=== PATIENT | female | born 1945 | race Caucasian/White ===

== ENCOUNTER 2023-10-12 16:18 | Emergency (ER) | payer MEDICARE, BC, SELFPAY ==
--- NOTE | ~2023-10-12 | XR_ITS ---
EXAMINATION: XR chest 1V portable DATE: 10/12/2023 19:20 INDICATION: Lightheadedness TECHNIQUE: frontal view of the chest was obtained. COMPARISON: None FINDINGS: The lungs are clear with no focal airspace opacities, pulmonary edema, pleural effusion or pneumothor ax. The cardiomediastinal silhouette is normal. Cardiac pacemaker/AICD seen with one lead tip project ing over the right atrium, and two ventricular leads with lead tips near the apex of the right ventri elizabeth, one presumably disconnected. IMPRESSION: 1. No acute cardiopulmonary disease. Reviewed, dictated and finalized at location A.
[2023-10-12 16:21] VITALS: BP 149/66; PULSE 76; RESP 16; TEMP 36.8; O2SAT 95
--- NOTE | 2023-10-12 19:01 | ECG_ITS ---
Test Date: 2023-10-12 19:10:24 Measurements Intervals [place] Rate: 70 P: 61 SD: 103 QRS: -81 QRSD: 160 T: 81 QT: 424 QTc: 460 Interpretive Statements ATRIAL SENSE- ELECTRONIC VENTRICULAR PACEMAKER BASELINE ARTIFACT- I, II, III, AVR, AVL, AVF, V1-V6 NO FURTHER INTERPRETATION IS POSSIBLE ATYPICAL ECG No previous ECG available for comparison Electronically Signed On 10-12-2023 19:41:26 CDT by Nitin Cuellar D.O.
--- NOTE | 2023-10-12 19:02 | ED.DENTAL ---
HPI - Dental/Oral General Chief complaint: Dental/Oral Stated complaint: NAUSEA/LIGHTHEADED Time Seen by Provider: 10/12/23 18:38 History of Present Illness HPI Narrative: 78-year-old female with reported history of COPD, hypertension, hyperlipidemia, CHF presents to the emergency department for a right-sided dental abscess for 2 days. She is also reporting lightheadedness, nausea and vomiting since yesterday. Patient states she developed the right lower dental abscess 2 days ago and contacted her dentist who prescribed her Augmentin and tramadol. States she took her 1st dose of Augmentin yesterday and another dose in the evening and immediately became nauseous. States she has been unable to keep down food or fluids since. She reports feeling lightheaded which is worse when standing. She denies abdominal pain, chest pain or shortness of breath, lower extremity edema, difficulty swallowing or breathing, fever, diarrhea. States she contacted her dentist advised her to discontinue her Augmentin and go to the ED for further evaluation. Related Data Allergies Allergy/AdvReac Type Severity Reaction Status Date / Time amoxicillin [From Augmentin] AdvReac Nausea Verified 10/12/23 16:25 clavulanic acid AdvReac Nausea Verified 10/12/23 16:25 [From Augmentin] codeine AdvReac Vomiting Verified 10/12/23 16:25 Review of Systems Review of Systems: All systems reviewed & are unremarkable except as noted in HPI and below Exam Narrative: GENERAL: Well-appearing, well-nourished, and in no acute distress. HEAD: Normocephalic, atraumatic. EYES: PERRLA and EOMI. ENT: Nares clear, no rhinorrhea or epistaxis. Mucous membranes Dry. periapical abscess to tooth #27 with fluctuance. No active drainage. Floor mouth is soft without crepitus. No airway compromise. No trismus. Patient tolerating secretions. No submandibular Edema NECK: Supple. CHEST: Clear to auscultation. No respiratory distress. HEART: Regular rate and rhythm. No murmur heard. Normal peripheral pulses. ABDOMEN: Soft, nontender, nondistended, normal active bowel sounds. no rebound, guarding or rigidity. No CVA tenderness. EXTREMITIES: Normal range of motion. No edema. SKIN: Warm, dry, no rash. NEURO: No focal deficits. Alert and oriented x3 Course Vital Signs Vital signs: Vital Signs Temperature 98.2 F 10/12/23 16:21 Pulse Rate 76 10/12/23 16:21 Respiratory Rate 16 10/12/23 16:21 Blood Pressure 149/66 H 10/12/23 16:21 Pulse Oximetry 95 10/12/23 16:21 Oxygen Delivery Room Air 10/12/23 16:21 Temperature 98.2 F 10/12/23 16:21 Pulse Rate 77 10/12/23 21:02 Respiratory Rate 13 10/12/23 21:02 Blood Pressure 129/54 L 10/12/23 21:02 Pulse Oximetry 95 10/12/23 21:02 Oxygen Delivery Room Air 10/12/23 16:21 Procedures Abscess I/D oral: Date of Incision: 10/12/23 Time of Incision: 19:05 Side (if applicable): right Technique: other (incised with 20 gauge needle) Amount of fluid expressed (mL): 1 Irrigation: No Packing used?: none I&D Results: Pus and Blood MDM - Dental/Oral MDM Narrative Medical decision making narrative: 78-year-old female presents to emergency department for a right dental abscess for 2 days, lightheadedness and N/V since starting her Augmentin that was prescribed by her dentist. Triage vitals are stable. Exam is significant for the above. Periapical abscess drained with a 20 gauge needle, purulence drained. no immediate complications. She has no airway compromise, no trismus. she is tolerating her secretions. Floor mouth is soft without crepitus. No submandibular swelling. Will obtain lab work, EKG, chest x-ray, orthostatic vitals signs for lightheadedness. EKG shows electronic ventricular pacemaker with a rate of 70 ppm, no ischemic changes. Troponin within normal limits. CBC is without leukocytosis or anemia. Chemistries are unremarkable.
[2023-10-12 19:20] LABS: Basophils Absolute Auto 0.1 K/mm3 (0.0-0.1); Basophils Percent Auto 0.6 % (0.2-1.2); Eosinophils Absolute Auto 0.1 K/mm3 (0-0.3); Eosinophils Percent Auto 0.7 % (0-4.4); Hematocrit 37.8 % (37.0-47.0); Hemoglobin 12.3 g/dL (12.0-15.0); Immature Granulocyte Absolute 0.02 K/mm3 (0.00-0.031); Immature Granulocyte Percent A 0.2 % (0-0.5); Lymphocytes Absolute Auto 0.72 K/mm3 (0.9-3.2); Lymphocytes Percent Auto 7.4 % (18.3-44.2); Mean Corpuscular HGB Conc 32.5 g/dl (32-36); Mean Corpuscular Hemoglobin 31.5 pg (26-34); Mean Corpuscular Volume 96.9 fl (80-100); Mean Platelet Volume 10.2 fl (7.4-10.4); Monocytes Absolute Auto 0.8 K/mm3 (0.1-0.6); Neutrophils Percent Auto 83.1 % (45.5-73.1); Platelet Count Result 236 k/mm3 (150-375); Red Cell Distribution Width 12.5 % (11.5-14.5); White Blood Count 9.7 K/mm3 (4.5-10.0)
[2023-10-12] MEDS: SODIUM CHLORIDE 0.9% IV 1,000 ML 999 ML IV CONT (19:26)
[2023-10-12] MEDS: ONDANSETRON INJ 4 MG/2 ML VIAL IV PUSH ×2 (19:27→21:15)
[2023-10-12 19:28] LABS: Prothrombin Time 13.8 Seconds (11.1-14.7)
[2023-10-12 19:29] VITALS: BP 138/63; PULSE 63; RESP 15; O2SAT 95
[2023-10-12 19:29] LABS: Partial Thromboplastin Time 28.9 Seconds (22.3-36.8)
--- NOTE | 2023-10-12 19:29 | PC.NURSE ---
Assumed care of pt from JAXON Campos. IV initiated, medications administered. pt resting w call light within reach.
[2023-10-12 19:32] LABS: Magnesium 1.9 mg/dL (1.6-2.3)
[2023-10-12 19:33] LABS: Lactic Acid Reflex 0.8 mmol/L (0.7-2.0)
[2023-10-12 19:35] LABS: Alanine Aminotransferase 28 U/L (6-35); Albumin Level 4.2 g/dL (3.5-5.1); Alkaline Phosphatase 117 U/L (38-126); Anion Gap 8 mmol/L (4-12); Aspartate Amino Transferase 27 U/L (14-36); Bilirubin,Total 0.9 mg/dL (0.2-1.3); Blood Urea Nitrogen 19 mg/dL (7-17); Calcium 9.5 mg/dL (8.4-10.2); Carbon Dioxide 29 mmol/L (22-30); Chloride 99 mmol/L (98-107); Estimated CRCL calculation 40 ml/min; Estimated Glomerular Filt Rate 60; Glucose 89 mg/dL (65-110); Sodium 136 mmol/L (137-145)
[2023-10-12 19:45] LABS: NT Pro B Type Natriuretic Pept 2240 pg/mL (19.9-100); Troponin I 0.013 ng/mL (0.000-0.034)
[2023-10-12 20:37] LABS: Appearance Urine Clear (Clear); Bacteria Urine None Seen /hpf; Bilirubin Urine Negative (Negative); Blood Urine Negative (Negative); Color Urine Yellow (Yellow); Glucose Urine UA Negative (Negative); Ketones Urine Trace mg/dL (Negative); Leukocyte Esterase Ur Trace LEU/UL (Negative); Nitrate Urine Negative (Negative); Non Pathogenic Casts 0-2; Protein Urine Negative (Negative); RBC Urine 0-2 /hpf (0-2); Specific Grav Ur 1.012 (1.001-1.035); Squamous Epithelial Cell Urine None Seen /hpf (Few); Urobilinogen Urine 0.2 mg/dL (<2.0); WBC Urine 0-5 /hpf (0-3)
[2023-10-12 20:44] LABS: Add Urine Microscopic? YES
[2023-10-12 21:02] VITALS: BP 129/54; PULSE 77; RESP 13; O2SAT 95
--- NOTE | 2023-10-12 21:24 | PC.NURSE ---
Pt provided crackers and water for PO challenge.
[2023-10-12 22:09] VITALS: BP 140/71; PULSE 79; RESP 17; O2SAT 95
== END 2023-10-12 22:12 | disposition home or self-care (01) ==
PROVIDERS: Emergency Provider Physician Assistant; PCP Internal Medicine
DX: R11.2 Nausea with vomiting, unspecified (principal); K04.7 Periapical abscess without sinus; J44.9 Chronic obstructive pulmonary disease, unspecified; I11.0 Hypertensive heart disease with heart failure; I50.9 Heart failure, unspecified; E78.5 Hyperlipidemia, unspecified
CPT/HCPCS: 36415; 41800; 71045; 80053; 81001; 83605; 83735; 83880; 84484; 85025; 85610; 85730; 93005; 96361; 96374; 96376; 99284; J2405; J7030

== ENCOUNTER 2023-10-14 12:55 | Inpatient (IN) | payer MEDICARE, BC, SELFPAY ==
[2023-10-14] VITALS (24 sets, daily range): BP systolic 100–150; BP diastolic 49–85; PULSE 60–97; RESP 13–23; TEMP 36.5–37.2; O2SAT 70–100; BMI 29.0
--- NOTE | ~2023-10-14 | CT_ITS ---
EXAMINATION: CTA chest PE protocol DATE: 10/14/2023 15:52 INDICATION: Hypoxia TECHNIQUE: Computed tomography (CT) pulmonary angiogram of the chest was performed with 100 mL Omnipa que-350 intravenous contrast. Additional 3D reconstructions utilizing coronal maximum intensity proje ction (MIP) were performed. Automated exposure control and iterative reconstruction technique were em ployed. The dose-length product was 210.77 mGy-cm. COMPARISON: None FINDINGS: No pulmonary embolism. Small region of lingular atelectasis along the inferior left major fissure. Mi ld emphysema. Small cluster of <4 mm pulmonary nodules in the posterolateral right upper lobe which a re likely infectious/inflammatory in etiology. Calcified nodule left lower lobe along with calcified left hilar and mediastinal lymph nodes consistent with old granulomatous disease. Remainder of the hayder ngs are clear. No pulmonary edema or pleural effusion. Heart size is normal. 3-lead cardiac pacemaker /defibrillator with one lead tip at the right atrial appendage, one near the apex of the right ventri elizabeth and one along the and inferolateral wall of the left ventricle having traversed the coronary sinu s. Minimal pericardial effusion. Thoracic aorta is normal in caliber with no dissection. No pathologi monique enlarged thoracic lymphadenopathy. Small sliding-type hiatal hernia. 1.4 cm cyst at the upper p ole of the right kidney. Moderate thoracic spondylosis with mild anterior wedging of a couple mid tho racic vertebral bodies. IMPRESSION: 1. No pulmonary embolism. 2. Mild emphysema with small cluster of <4 mm nodules in the right upper lobe likely infectious/infla mmatory in etiology. 3. Small sliding-type hiatal hernia. Reviewed, dictated and finalized at location A. IMPRESSION: 1. No pulmonary embolism. 2. Mild emphysema with small cluster of <4 mm nodules in the right upper lobe l ikely infectious/inflammatory in etiology. 3. Small sliding-type hiatal hernia.
--- NOTE | ~2023-10-14 | XR_ITS ---
EXAMINATION: XR chest 1V portable DATE: 10/14/2023 14:14 INDICATION: Hypoxia. Chronic obstructive pulmonary disease. TECHNIQUE: A single frontal view of the chest was obtained. COMPARISON: Chest single view 10/12/2023 FINDINGS: There is no pneumonia, pleural effusion, or pneumothorax. The heart size is normal. There i s a left chest pacer with lead in right atrium and 2 leads overlying right ventricle. IMPRESSION: 1. No acute cardiopulmonary disease. Reviewed, dictated and finalized at location A.
--- NOTE | 2023-10-14 13:08 | ECG_ITS ---
Test Date: 2023-10-14 13:08:59 Measurements Intervals [place] Rate: 70 P: 83 [place]: 102 QRS: -82 QRSD: 161 T: 77 QT: 448 QTc: 484 Interpretive Statements ELECTRONIC VENTRICULAR PACEMAKER WITH ATRIAL SENSING ABNORMAL RHYTHM ECG Compared to ECG 10/12/2023 19:10:24 No significant changes Electronically Signed On 10-16-2023 10:42:08 CDT by Shahzad Ignacio M.D.
--- NOTE | 2023-10-14 13:13 | PC.NURSE ---
Patient O2 was 76% on room air. placed on non rebreather and oxygen came up to 100%. patient taken off the mask and placed on 2L NC.
[2023-10-14] MEDS: SODIUM CHLORIDE 0.9% IV 1,000 ML 999 ML IV CONT (13:31)
[2023-10-14] MEDS: dexAMETHasone SOD PHOS INJ 10 MG/ML 1 ML VIAL IV PUSH ×2 (13:31→18:50)
[2023-10-14 13:32] LABS: Basophils Absolute Auto 0.1 K/mm3 (0.0-0.1); Basophils Percent Auto 1.3 % (0.2-1.2); Eosinophils Absolute Auto 0.1 K/mm3 (0-0.3); Eosinophils Percent Auto 1.8 % (0-4.4); Hematocrit 36.3 % (37.0-47.0); Hemoglobin 11.6 g/dL (12.0-15.0); Immature Granulocyte Absolute 0.02 K/mm3 (0.00-0.031); Immature Granulocyte Percent A 0.3 % (0-0.5); Lymphocytes Absolute Auto 0.61 K/mm3 (0.9-3.2); Lymphocytes Percent Auto 9.8 % (18.3-44.2); Mean Corpuscular Hemoglobin 32.1 pg (26-34); Mean Corpuscular Volume 100.6 fl (80-100); Mean Platelet Volume 10.4 fl (7.4-10.4); Monocytes Absolute Auto 0.6 K/mm3 (0.1-0.6); Monocytes Percent Auto 10.3 % (2.6-8.5); Neutrophils Absolute Auto 4.8 K/mm3 (1.3-6.7); Neutrophils Percent Auto 76.5 % (45.5-73.1); Platelet Count Result 230 k/mm3 (150-375); Red Blood Count 3.61 M/mm3 (4.2-5.4); Red Cell Distribution Width 12.9 % (11.5-14.5); White Blood Count 6.2 K/mm3 (4.5-10.0)
[2023-10-14] MEDS: IPRATROPIUM 0.5 MG/ALBUTEROL SULFATE 2.5 MG AMPUL.NEB 3 ML 12 ML INHALATION (13:36)
[2023-10-14 13:42] LABS: Alanine Aminotransferase 26 U/L (6-35); Albumin Level 3.6 g/dL (3.5-5.1); Alkaline Phosphatase 102 U/L (38-126); Anion Gap 7 mmol/L (4-12); Aspartate Amino Transferase 28 U/L (14-36); Bilirubin,Total 0.4 mg/dL (0.2-1.3); Blood Urea Nitrogen 18 mg/dL (7-17); Carbon Dioxide 29 mmol/L (22-30); Chloride 104 mmol/L (98-107); Estimated CRCL calculation 33 ml/min; Estimated Glomerular Filt Rate 48; Glucose 94 mg/dL (65-110); Lipase 61 U/L (23-300); Magnesium 1.9 mg/dL (1.6-2.3); Potassium 3.8 mmol/L (3.4-5.0); Sodium 140 mmol/L (137-145)
[2023-10-14 13:43] LABS: Lactic Acid Reflex 0.8 mmol/L (0.7-2.0)
[2023-10-14 14:02] LABS: NT Pro B Type Natriuretic Pept 3400 pg/mL (19.9-100); Troponin I 0.152 ng/mL (0.000-0.034)
[2023-10-14 14:08] LABS: Influenza A QL RT-PCR Negative (Negative); Influenza B QL RT-PCR Negative (Negative); RSV RNA, RT-PCR Negative (Negative); SARS-CoV-2 RNA PCR Negative (Negative)
[2023-10-14] MEDS: ACETAMINOPHEN 500 MG TABLET 1000 MG PO (14:15)
--- NOTE | 2023-10-14 15:17 | ED.GENADULT ---
HPI - General Adult General Chief complaint: Nausea/Vomiting/Diarrhea Stated complaint: nauseated Time Seen by Provider: 10/14/23 13:07 History of Present Illness HPI narrative: This is an 78-year-old female presenting ED with a chief complaint of nausea vomiting. Patient was seen here several days ago for a dental abscess. It was drained and she was started on Augmentin. She developed nausea and vomiting that she is associated with the Augmentin. That was DC'ed did and she was put on clindamycin however she has continued to have GI symptoms. The patient says she feels short of breath but says is her baseline. She denies fevers chills productive cough chest pain abdominal pain or lower extremity edema. Patient has history of CHF COPD. While the patient came for nausea and vomiting in triage she was found severely hypoxic requiring supplemental oxygen. She does not wear oxygen home. Related Data Allergies Allergy/AdvReac Type Severity Reaction Status Date / Time amoxicillin [From Augmentin] AdvReac Nausea Verified 10/14/23 13:23 clavulanic acid AdvReac Nausea Verified 10/14/23 13:23 [From Augmentin] codeine AdvReac Vomiting Verified 10/14/23 13:23 Exam Narrative: APPEARANCE: No apparent distress. Head: atraumatic. EYES: EOMI, NOSE: Atraumatic NECK: Trachea midline RESPIRATORY: Hypoxic on room air, decreased lung sounds in all haro, scattered expiratory wheezing CARDIOVASCULAR: RRR, no peripheral edema, point of care cardiac thoracic echo revealed a flat IVC ABDOMINAL: Non-distended MUSCULOSKELETAl: No obvious deformities NEURO: Alert. Moving 4/4 extremities SKIN:: Warm, dry. Normal color PSYCHIATRIC: Normal affect Course Vital Signs Vital signs: Vital Signs Temperature 97.7 F 10/14/23 13:01 Pulse Rate 97 10/14/23 13:01 Respiratory Rate 18 10/14/23 13:01 Blood Pressure 145/60 H 10/14/23 13:01 Pulse Oximetry 80 L 10/14/23 13:01 Temperature 97.7 F 10/14/23 13:01 Pulse Rate 75 10/14/23 14:01 Respiratory Rate 19 10/14/23 14:01 Blood Pressure 136/66 10/14/23 14:00 Pulse Oximetry 92 10/14/23 14:01 Medical Decision Making [facility] Narrative Medical decision making narrative: -Course: 78-year-old female coming to the ED with a chief complaint of nausea vomiting for several days. However in triage patient was found to be severely hypoxic and in respiratory distress. Patient was placed on supplemental oxygen. Point of care cardiothoracic echo showed a flat IVC which suggests her dyspnea is not related to her CHF. Given breathing treatments and steroids for COPD. Hypoxic did not improve after breathing treatments. Chest xray clear. CT PE ordered to evaluate for other causes which showed no evidence of pulmonary embolism but did show some small/possibly infectious nodules. Patient will be started on ceftriaxone and azithromycin to cover pneumonia. Patient be admitted the hospital for further management -DDX includes but is not limited to: Pneumonia, COPD, CHF, ACS, viral syndrome, PE -Co-morbidities complicating care: CHF, COPD -Independent interpretation of studies: White count 6.2, Lactic acid 0.8. Creatinine 1.1 which is a 0.2 increased from 2 days ago. Troponin elevated at 0.152. BNP 3400. Point of care cardiac thoracic echo showed a flat IVC. No other signs of fluid overload to the indicate respiratory distress due to CHF. Viral swabs negative. X-ray clear. Independent EKG interpretation: Rhythm Paced, Rate [70], [place] -[normal], CT -[normal], QRS [wide], QTC [normal], T waves -[negative for concerning inversions], ST Segments - [Negative for concerning elevations] Final interpretations: Paced rhythm -Discussion of Management/Consultants: Jenn -Interventions: Tylenol, 1 L normal saline, 10 mg dexamethasone, 1 hour breathing treatment, ceftriaxone azithromycin -Shared decision making / Disposition:admitted. Vital Signs Vital Signs: Vital Signs Temperat
--- NOTE | 2023-10-14 15:29 | PC.NURSE ---
patient states improvement in pain.
--- NOTE | 2023-10-14 17:14 | PC.NURSE ---
food tray ordered for patient.
[2023-10-14 17:17] LABS: Troponin I 0.129 ng/mL (0.000-0.034)
[2023-10-14] MEDS: AZITHROMYCIN 500 MG/NS 250 ML 500 MG/250 ML BAG 250 MG IVPB (17:18)
--- NOTE | 2023-10-14 17:30 | PM.IMHP ---
H&P: HPI History of Present Illness Date/Time: 10/14/23 17:30 Chief Complaint: Nausea and shortness of breath. Narrative: This is a pleasant 78-year-old female with chronic obstructive pulmonary disease, congestive heart failure, hypothyroidism, and hyperlipidemia who presented to the emergency department for evaluation of nausea and shortness of breath. The patient provides the following history. She was prescribed Augmentin by her dentist on 10/11/2023 due to an abscessed tooth. She was seen in the ED the following day for GI symptoms which she attributed to the Augmentin and had an I&D of tooth number 27. She was given a prescription for clindamycin which she has at to have filled. She continues to have nausea and she also reports increasing cough and shortness of breath from baseline. The cough sounds wet but she has not been able to get anything up. She has been using her nebulizer and albuterol inhaler with lesser and lesser benefit. She denies fever, chills, sweats, chest pain, pleuritic pain, palpitations, orthopnea, paroxysmal nocturnal dyspnea, lower extremity edema, calf pain, nausea, vomiting, and diarrhea. No sick contacts. In the ED: She was hypoxic in triage with an SpO2 as low as 70%. She has been afebrile and blood pressures are stable. Labs are significant for a WBC count of 6.2, hemoglobin 11.6, BUN 18, creatinine 1.10, proBNP 3400, troponin 0.152. She tested negative for influenza, RSV, and COVID. Chest x-ray showed no acute cardiopulmonary disease. Chest CTA was negative for pulmonary embolism. She received continuous DuoNeb and dexamethasone 10 mg IV with some improvement and is being admitted in this setting for further treatment of COPD and evaluation of elevated troponins. Review of Systems Review of Systems: 12 systems were reviewed and are negative except for as per HPI. [facility] Past Medical History Medical History Cardiomyopathy with implantable cardioverter-defibrillator Chronic obstructive pulmonary disease Congestive heart failure Hyperlipidemia Hypothyroidism Surgical History Surgical History History of cardiac defibrillator placement Social History Social History Social History: Surrogate medical decision maker: Shahzad Geiger, spouse. Code status: Full code. Alcohol intake: never Substance use: never Do You Feel Safe in your Home?: Yes Lack of Transportation: No Lack of Food: Never True Current Housing: I Have Housing Concerned About Future Housing: No Difficulty Paying Gas/Electric Bills: No Difficulty Paying for Meds: No Currently Unemployed: No Education: Decline to Answer Difficulty w/ Childcare or Family Care: No Spiritual care concerns: No Meds Home Medications and Allergies Home Medications Medication Instructions Recorded Confirmed Type clindamycin HCl 300 mg capsule 300 mg PO Q6H 7 days #28 caps 10/12/23 10/14/23 Rx albuterol sulfate 90 mcg/actuation 90 mcg inhalation QID 10/14/23 10/14/23 History aerosol inhaler atorvastatin 40 mg tablet 40 mg PO DAILY 10/14/23 10/14/23 History bisoprolol fumarate 10 mg tablet 10 mg PO DAILY 10/14/23 10/14/23 History budesonide-formoterol HFA 160 2 puff inhalation BID 10/14/23 10/14/23 History mcg-4.5 mcg/actuation aerosol inhaler (Breyna) esomeprazole magnesium 40 mg 40 mg PO DAILY 10/14/23 10/14/23 History capsule,delayed release fluticasone 100 mcg-salmeterol 50 1 inh inhalation BID 10/14/23 10/14/23 History mcg/dose blistr powdr for inhalation (Wixela Inhub) levothyroxine 112 mcg tablet 1 mcg PO DAILY 10/14/23 10/14/23 History ondansetron 4 mg disintegrating 4 mg PO Q8H 10/14/23 10/14/23 History tablet sacubitril 49 mg-valsartan 51 mg 49 - 51 tablet PO BID 10/14/23 10/14/23 History tablet (Entresto) spironol
[2023-10-14] MEDS: SODIUM CHLORIDE 0.9% IV 1,000 ML 80 ML IV CONT (18:50)
--- NOTE | 2023-10-14 20:11 | ADMGEN ---
This patient, Delmis Geiger, was admitted to IMU Room 232-01. Patient/family oriented to hospital policies and general routines including ID bracelet, bed and alarms, visiting hours, pain management, procedures, bathroom and other care routines, personal items, smoking policy, room service/diet, and visiting hours. Information on how to activate the Rapid Response Team has been discussed. Patient/Family are encouraged to report perceived risks to care and to ask questions if they do not understand what they are told or what they should do.
[2023-10-14] MEDS: IPRATROPIUM 0.5 MG/ALBUTEROL SULFATE 2.5 MG AMPUL.NEB 3 ML INHALATION (20:32)
[2023-10-15] VITALS (25 sets, daily range): BP systolic 131–155; BP diastolic 54–73; PULSE 60–80; RESP 16–20; TEMP 36.4–36.9; O2SAT 89–100
--- NOTE | 2023-10-15 | ECHO_ITS ---
Patient Info Name: Delmis Geiger Age: 78 years : 1945 Gender: Female Ht: 62 in Wt: 150 lbs BSA: 1.74 m2 HR: 64 bpm BP: 155 / 54 mmHg Heart Rhythm: Paced Technical Quality: Good Exam Date: 10/15/2023 9:05 AM Exam Location: Echo Lab Patient Status: Inpatient Admit Date: 10/14/2023 Staff Ordering Physician: Vannesa Alcala PA-C Motorcycle Fabricator: Nic James RDCS Attending Provider: Minna Rojas APRN Referring Physician: Fredrick GARVIN; Exam Type: CA echo doppler color flow Study Info Indications - ELEVATED TROPONIN, CHF, CM Complete two-dimensional, color flow and Doppler transthoracic echocardiogram is performed. Summary 1. Left ventricular chamber dimension is normal. 2. Left ventricular systolic function is mildly reduced, estimated at 45-50%. 3. The left ventricular diastolic function is grade I diastolic dysfunction. 4. Right ventricular systolic function is normal. 5. Left atrial chamber dimension is mildly enlarged. 6. There is mild mitral valve regurgitation. Left Ventricle Left ventricular chamber dimension is normal. Left ventricular systolic function is mildly reduced, estimated at 45-50%. There is no increased left ventricular wall thickness. Left ventricular septal wall motion is abnormal with septal motion related to pacing. The left ventricular diastolic function is grade I diastolic dysfunction. Right Ventricle Linear artifact in right ventricle suggestive of catheter(s), pacemaker lead(s), or ICD lead(s). Right ventricular chamber dimension is normal. Right ventricular systolic function is normal. Left Atria Left atrial chamber dimension is mildly enlarged. Right Atria Linear artifact in the right atrium suggestive of catheter(s), pacemaker lead(s), or ICD lead(s). Right atrial chamber dimension is normal. Atrial Septum Intact interatrial septum visualized by color flow imaging. Aortic Valve The aortic valve is trileaflet. There is no aortic valve stenosis. There is no aortic valve regurgitation. There is mild aortic valve calcification. Pulmonic Valve The pulmonic valve is not well visualized. Mitral Valve There is mild mitral valve regurgitation. Tricuspid Valve There is trace tricuspid valve regurgitation. Pericardium/Pleural There is no pericardial effusion. Inferior Vena Cava Normal inferior vena cava with >50% collapse upon inspiration consistent with normal right atrial pressure, 3 mmHg. Aorta The aortic root size at the sinus of Valsalva is normal. Left Ventricular Outflow Tract Name Value Normal LVOT 2D LVOT Diameter 1.9 cm LVOT Doppler LVOT Peak Gradient 4 mmHg LVOT Mean Gradient 3 mmHg LVOT VTI 28 cm LVOT VTI/AV VTI Ratio 0.6 LVOT Stroke Volume 80 ml LVOT CO 5.9 l/min LVOT CI 3.4 l/min/m2 Pulmonic Valve Name Value Normal
[2023-10-15 00:15] LABS: Add Urine Microscopic? YES; Appearance Urine Clear (Clear); Bacteria Urine None Seen /hpf; Bilirubin Urine Negative (Negative); Blood Urine Negative (Negative); Color Urine Yellow (Yellow); Glucose Urine UA Trace mg/dL (Negative); Ketones Urine Trace mg/dL (Negative); Leukocyte Esterase Ur Negative LEU/UL (Negative); Nitrate Urine Negative (Negative); Non Pathogenic Casts 0-2; Protein Urine 1+ mg/dL (Negative); RBC Urine 0-2 /hpf (0-2); Specific Grav Ur > 1.045 (1.001-1.035); Squamous Epithelial Cell Urine None Seen /hpf (Few); WBC Urine 0-5 /hpf (0-3)
[2023-10-15] MEDS: IPRATROPIUM 0.5 MG/ALBUTEROL SULFATE 2.5 MG AMPUL.NEB 3 ML INHALATION ×4 (02:40→21:20)
[2023-10-15 04:56] LABS: Basophils Percent Auto 0.4 % (0.2-1.2); Hematocrit 33.1 % (37.0-47.0); Hemoglobin 10.6 g/dL (12.0-15.0); Immature Granulocyte Absolute 0.02 K/mm3 (0.00-0.031); Immature Granulocyte Percent A 0.4 % (0-0.5); Lymphocytes Absolute Auto 0.34 K/mm3 (0.9-3.2); Lymphocytes Percent Auto 6.7 % (18.3-44.2); Mean Corpuscular Hemoglobin 31.8 pg (26-34); Mean Corpuscular Volume 99.4 fl (80-100); Mean Platelet Volume 10.4 fl (7.4-10.4); Monocytes Absolute Auto 0.3 K/mm3 (0.1-0.6); Monocytes Percent Auto 5.7 % (2.6-8.5); Neutrophils Absolute Auto 4.4 K/mm3 (1.3-6.7); Neutrophils Percent Auto 86.8 % (45.5-73.1); Platelet Count Result 227 k/mm3 (150-375); Red Blood Count 3.33 M/mm3 (4.2-5.4); Red Cell Distribution Width 12.7 % (11.5-14.5); White Blood Count 5.1 K/mm3 (4.5-10.0)
[2023-10-15 05:08] LABS: Anion Gap 7 mmol/L (4-12); Blood Urea Nitrogen 16 mg/dL (7-17); Calcium 8.6 mg/dL (8.4-10.2); Carbon Dioxide 28 mmol/L (22-30); Chloride 105 mmol/L (98-107); Estimated CRCL calculation 38 ml/min; Estimated Glomerular Filt Rate 53; Glucose 122 mg/dL (65-110); Potassium 4.3 mmol/L (3.4-5.0); Sodium 140 mmol/L (137-145)
[2023-10-15] MEDS: LEVOTHYROXINE SODIUM 112 MCG TABLET PO (07:36)
[2023-10-15] MEDS: PANTOPRAZOLE 40 MG TABLET PO (08:39)
[2023-10-15] MEDS: ATORVASTATIN 40 MG TABLET PO (08:39)
[2023-10-15] MEDS: predniSONE 20 MG TABLET 40 MG PO (08:39)
[2023-10-15] MEDS: bisoproloL fumarate 5 MG TABLET 10 MG PO (08:39)
[2023-10-15] MEDS: SACUBITRIL/VALSARTAN 49-51 MG TABLET PO (08:40)
--- NOTE | 2023-10-15 10:43 | PM.CNCAR ---
Assessment and Plan Assessment and plan (1) Acute exacerbation of chronic obstructive pulmonary disease: Code(s): J44.1 - Chronic obstructive pulmonary disease with (acute) exacerbation Status: Acute Assessment and Plan: Management as per primary team. (2) Acute respiratory failure with hypoxia: Code(s): J96.01 - Acute respiratory failure with hypoxia Status: Acute Assessment and Plan: Due to COPD exacerbation and possible pneumonia. Management as per primary team. (3) Elevated troponin: Code(s): R79.89 - Other specified abnormal findings of blood chemistry Status: Acute Assessment and Plan: Mildly elevated but flat. Likely demand ischemia in the setting of hypoxic respiratory failure. Not an acute coronary syndrome. Echocardiogram already ordered and pending. (4) Chronic heart failure with mildly reduced ejection fraction (HFmrEF, 41-49%): Code(s): I50.22 - Chronic systolic (congestive) heart failure Status: Acute Assessment and Plan: Euvolemic. Continue home Bisoprolol 10mg once daily, Entresto 49/51mg BID, Spironolactone 25mg once daily. On PRN Lasix at home. Outpatient follow up with her primary pigment and lacquer mixer at [facility]. (5) Cardiac resynchronization therapy defibrillator (CRUSHING MACHINE OPERATOR-D) in place: Code(s): Z95.810 - Presence of automatic (implantable) cardiac defibrillator Status: Acute Assessment and Plan: Outpatient follow up with her Electrophysiology team. (6) Hypertension: Code(s): I10 - Essential (primary) hypertension Status: Acute Assessment and Plan: Stable. Continue Bisoprolol, Entresto, Spironolactone. (7) Hyperlipidemia: Code(s): E78.5 - Hyperlipidemia, unspecified Status: Acute Assessment and Plan: Continue Atorvastatin. (8) Coronary artery disease: Code(s): I25.10 - Atherosclerotic heart disease of [place] coronary artery without angina pectoris Status: Acute Assessment and Plan: Will resume her home ASA 81mg once daily. Continue Atorvastatin. Plan Patient to follow up with her primary cardiology teams after hospital discharge. Recommendations and plan discussed with Hospitalist. History of Present Illness History of Present Illness Consult date/time: 10/15/23 10:43 Requesting physician: Vannesa Alcala PA-C Consult reason: Other (Elevated troponin) Reason For Visit: hypoxic resp failure Narrative: We are consulted for elevated troponin. This is an 78 year old female with COPD, chronic heart failure with mildly reduced LVEF s/p CRUSHING MACHINE OPERATOR-D / nonischemic cardiomyopathy, hypertension, hypothyroidism, hyperlipidemia who presented with shortness of breath and nausea. Recently treated for a tooth abscess. In the ED, she was noted to be hypoxic in with oxygen saturations as low as 70%. Admitted for a COPD exacerbation. Troponins are 0.152, 0.129. NT pro BNP of 3400. Chest CTA negative for PE. Shows mild emphysema with small cluster of <4mm nodules in the right upper lobe likely infectious/inflammatory in etiology and a small sliding type hiatal hernia. EKG with ventricular paced rhythm. We do not have any of her prior cardiac records on our [facility] system. Review of her chart in our [facility] system shows: Transthoracic echocardiogram November 2022 with LVEF 41%, grade II diastolic dysfunction, trace-mild TR/ND, trace MR. She follows with [facility]. Initially diagnosed with CHF in 2019. Has single vessel coronary artery disease Review of Systems Review of Systems: All systems reviewed & are unremarkable except as noted in HPI and below (HPI) [facility] Past Medical History Medical History (Updated 10/15/23 @ 10:58 by Leandro Fall MD) Chronic obstructive pulmonary disease Hyperlipidemia Hypothyroidism Surgical History Surgical History History of cardiac defibrillator placement
[2023-10-15 11:01] LABS: Thyroid Stimulating Hormone 0.853 uIU/mL (0.465-4.680)
[2023-10-15 11:07] LABS: Troponin I 0.045 ng/mL (0.000-0.034)
--- NOTE | 2023-10-15 13:54 | P.PNIM_ITS ---
Progress Note: A&P Assessment and Plan (1) Acute respiratory failure with hypoxia: Code(s): J96.01 - Acute respiratory failure with hypoxia Status: Acute (2) Acute exacerbation of chronic obstructive pulmonary disease: Code(s): J44.1 - Chronic obstructive pulmonary disease with (acute) exacerbation Status: Acute (3) Elevated troponin: Code(s): R79.89 - Other specified abnormal findings of blood chemistry Status: Acute (4) Dental abscess: Code(s): K04.7 - Periapical abscess without sinus Status: Acute (5) Congestive heart failure: Code(s): I50.9 - Heart failure, unspecified Status: Deleted (6) Cardiomyopathy with implantable cardioverter-defibrillator: Code(s): I42.9 - Cardiomyopathy, unspecified; Z95.810 - Presence of automatic (implantable) cardiac defibrillator Status: Deleted (7) Hypothyroidism: Code(s): E03.9 - Hypothyroidism, unspecified Status: Acute (8) Hyperlipidemia: Code(s): E78.5 - Hyperlipidemia, unspecified Status: Acute Plan Acute respiratory failure with hypoxia * SpO2 70% POA * Continues home supplemental oxygen and 2 L continue to wean as tolerated * CTA negative for PE/Mild emphysema with small cluster of <4 mm nodules in the right upper lobe likely infectious/inflammatory in etiology. * Secondary to pneumonia? and COPD exacerbation * 6 minute walk study prior to discharge Pneumonia? * Bronchodilators. * Chest x-ray: Mild emphysema with small cluster of <4 mm nodules in the right upper lobe likely infectious/inflammatory in etiology. * incentive spirometry while awake. * sputum culture ordered * influenza/COVID/RSV negative * respiratory panel pending * Azithromycin/Rocephin * supplemental oxygen therapy to maintain oxygen 92% * guaifenesin COPD * Bronchodilators. * Chest x-ray * incentive spirometry while awake. * steroids initiated * Azithromycin/Rocephin * supplemental oxygen therapy to maintain oxygen 92% * Will likely need 6 minute walk study prior to discharge Elevated troponins/HX CHF * Ischemic demand secondary to COPD exacerbation * Peaked at 0.152 with downtrend * Follow-up echocardiogram with improvement EF up to 45-50% * EKG Paced * Cardiology signed off on ACS * Resumed Entresto Code status: Full code per patient DVT prophylaxis: Lovenox Stress ulcer prophylaxis: Protonix 40 daily PT/OT Notes: PT/OT pending Disposition: Patient continues admission for acute respiratory failure with hypoxia secondary to COPD exacerbation and pneumonia will continue with current treatment and wean oxygen as tolerated will likely need 6 minute walk study prior to discharge. PT OT ordered for evaluation however please do will likely be to discharge home may need home health. Time Spent With Patient Time with patient: 15 - 25 minutes Subjective Date/time seen: 10/15/23 13:54 Interval history: Admission: Medical Chart This is a pleasant 78-year-old female with chronic obstructive pulmonary disease, congestive heart failure, hypothyroidism, and hyperlipidemia who presented to the emergency department for evaluation of nausea and shortness of breath. The patient provides the following history. She was prescribed Augmentin by her dentist on 10/11/2023 due to an abscessed tooth. She was seen in the ED the following day for GI symptoms which she attributed to the Augmentin and had an I&D of tooth number 27. She was given a prescription for clindamyc
--- NOTE | 2023-10-15 13:54 | PM.IMPN ---
Progress Note: A&P Assessment and Plan (1) Acute respiratory failure with hypoxia: Code(s): J96.01 - Acute respiratory failure with hypoxia Status: Acute (2) Acute exacerbation of chronic obstructive pulmonary disease: Code(s): J44.1 - Chronic obstructive pulmonary disease with (acute) exacerbation Status: Acute (3) Elevated troponin: Code(s): R79.89 - Other specified abnormal findings of blood chemistry Status: Acute (4) Dental abscess: Code(s): K04.7 - Periapical abscess without sinus Status: Acute (5) Congestive heart failure: Code(s): I50.9 - Heart failure, unspecified Status: Deleted (6) Cardiomyopathy with implantable cardioverter-defibrillator: Code(s): I42.9 - Cardiomyopathy, unspecified; Z95.810 - Presence of automatic (implantable) cardiac defibrillator Status: Deleted (7) Hypothyroidism: Code(s): E03.9 - Hypothyroidism, unspecified Status: Acute (8) Hyperlipidemia: Code(s): E78.5 - Hyperlipidemia, unspecified Status: Acute Plan Acute respiratory failure with hypoxia SpO2 70% POA Continues home supplemental oxygen and 2 L continue to wean as tolerated CTA negative for PE/Mild emphysema with small cluster of <4 mm nodules in the right upper lobe likely infectious/inflammatory in etiology. Secondary to pneumonia? and COPD exacerbation 6 minute walk study prior to discharge Pneumonia? Bronchodilators. Chest x-ray: Mild emphysema with small cluster of <4 mm nodules in the right upper lobe likely infectious/inflammatory in etiology. incentive spirometry while awake. sputum culture ordered influenza/COVID/RSV negative respiratory panel pending Azithromycin/Rocephin supplemental oxygen therapy to maintain oxygen 92% guaifenesin COPD Bronchodilators. Chest x-ray incentive spirometry while awake. steroids initiated Azithromycin/Rocephin supplemental oxygen therapy to maintain oxygen 92% Will likely need 6 minute walk study prior to discharge Elevated troponins/HX CHF Ischemic demand secondary to COPD exacerbation Peaked at 0.152 with downtrend Follow-up echocardiogram with improvement EF up to 45-50% EKG Paced Cardiology signed off on ACS Resumed Entresto Code status: Full code per patient DVT prophylaxis: Lovenox Stress ulcer prophylaxis: Protonix 40 daily PT/OT Notes: PT/OT pending Disposition: Patient continues admission for acute respiratory failure with hypoxia secondary to COPD exacerbation and pneumonia will continue with current treatment and wean oxygen as tolerated will likely need 6 minute walk study prior to discharge. PT OT ordered for evaluation however please do will likely be to discharge home may need home health. Time Spent With Patient Time with patient: 15 - 25 minutes Subjective Date/time seen: 10/15/23 13:54 Interval history: Admission: Medical Chart This is a pleasant 78-year-old female with chronic obstructive pulmonary disease, congestive heart failure, hypothyroidism, and hyperlipidemia who presented to the emergency department for evaluation of nausea and shortness of breath. The patient provides the following history. She was prescribed Augmentin by her dentist on 10/11/2023 due to an abscessed tooth. She was seen in the ED the following day for GI symptoms which she attributed to the Augmentin and had an I&D of tooth number 27. She was given a prescription for clindamycin which she has at to have filled. She continues to have nausea and she also reports increasing cough and shortness of breath from baseline. The cough sounds wet but she has not been able to get anything up. She has been using her nebulizer and albuterol inhaler with lesser and lesser benefit. She denies fever, chills, sweats, chest pain, pleuritic pain, palpitations, orthopnea, paroxysmal nocturnal dyspnea, lower extremity edema, calf pain, nausea, vomiting,
[2023-10-15] MEDS: guaiFENesin 12 HR 600 MG TABCR 1200 MG PO (20:02)
[2023-10-15] MEDS: AZITHROMYCIN 500 MG/NS 250 ML 500 MG/250 ML BAG 250 MG IVPB (20:02)
[2023-10-15] MEDS: SACUBITRIL/VALSARTAN 49-51 MG TABLET 1 TABLET PO (20:03)
[2023-10-15] MEDS: FLUTICASONE/SALMETEROL 115-21 MCG INHALER 1 PUFF 2 PUFF INHALATION (21:20)
[2023-10-15] MEDS: MELATONIN 5 MG TABLET 10 MG PO (21:37)
[2023-10-16] VITALS (18 sets, daily range): BP systolic 132–151; BP diastolic 53–81; PULSE 62–93; RESP 16–24; TEMP 36.3–36.9; O2SAT 86–95
[2023-10-16] MEDS: IPRATROPIUM 0.5 MG/ALBUTEROL SULFATE 2.5 MG AMPUL.NEB 3 ML INHALATION ×2 (01:51→09:04)
[2023-10-16 04:08] LABS: Potassium 3.6 mmol/L (3.4-5.0)
[2023-10-16] MEDS: bisoproloL fumarate 5 MG TABLET 10 MG PO (07:51)
[2023-10-16] MEDS: ATORVASTATIN 40 MG TABLET PO (07:53)
[2023-10-16] MEDS: LEVOTHYROXINE SODIUM 112 MCG TABLET PO (07:54)
[2023-10-16] MEDS: guaiFENesin 12 HR 600 MG TABCR 1200 MG PO (07:54)
[2023-10-16] MEDS: PANTOPRAZOLE 40 MG TABLET PO (07:55)
[2023-10-16] MEDS: SPIRONOLACTONE 25 MG TABLET PO (07:55)
[2023-10-16] MEDS: SACUBITRIL/VALSARTAN 49-51 MG TABLET 1 TABLET PO (07:55)
[2023-10-16] MEDS: predniSONE 20 MG TABLET 40 MG PO (07:56)
[2023-10-16] MEDS: ASPIRIN 81 MG ENTERIC TABLET PO (07:56)
[2023-10-16 08:05] LABS: Hematocrit 33.1 % (37.0-47.0); Hemoglobin 10.8 g/dL (12.0-15.0); Mean Corpuscular HGB Conc 32.6 g/dl (32-36); Mean Corpuscular Hemoglobin 32.4 pg (26-34); Mean Corpuscular Volume 99.4 fl (80-100); Mean Platelet Volume 11.1 fl (7.4-10.4); Platelet Count Result 251 k/mm3 (150-375); Red Blood Count 3.33 M/mm3 (4.2-5.4); Red Cell Distribution Width 12.8 % (11.5-14.5)
--- NOTE | 2023-10-16 08:08 | PC.NURSE ---
pt requests stool softener, reports she hasn't had a bm since thursday. Will notify nps
[2023-10-16 08:19] LABS: Alanine Aminotransferase 30 U/L (6-35); Albumin Level 3.1 g/dL (3.5-5.1); Alkaline Phosphatase 89 U/L (38-126); Anion Gap 7 mmol/L (4-12); Aspartate Amino Transferase 28 U/L (14-36); Bilirubin,Total 0.2 mg/dL (0.2-1.3); Blood Urea Nitrogen 19 mg/dL (7-17); Calcium 8.9 mg/dL (8.4-10.2); Carbon Dioxide 27 mmol/L (22-30); Chloride 106 mmol/L (98-107); Estimated CRCL calculation 42 ml/min; Estimated Glomerular Filt Rate 60; Glucose 110 mg/dL (65-110); Potassium 3.7 mmol/L (3.4-5.0); Sodium 140 mmol/L (137-145)
[2023-10-16] MEDS: ENOXAPARIN 40 MG/0.4 ML SYRINGE SUB-Q (09:15)
[2023-10-16] MEDS: polyethylene glycoL 3350 17 GM POWD.PACK PO (09:44)
--- NOTE | 2023-10-16 10:06 | PC.NURSE ---
pt up for walk with resp/PT
--- NOTE | 2023-10-16 10:20 | HOMEO2EVAL ---
Evaluation was performed at [facility] Home Oxygen Evaluation RC: Home Oxygen (O2) Evaluation Start: 10/16/23 09:17 Freq: ONCE Status: Active Protocol: RPE Activity Type Activity Date Activity User E-sign Co-sign Detail Recorded Client Recorded Date Recorded By Document 10/16/23 09:45 AYDEN [email or web address] 10/16/23 10:20 AYDEN Document 10/16/23 09:50 [email or web address] [email or web address] 10/16/23 10:20 AYDEN Document 10/16/23 09:51 [email or web address] [email or web address] 10/16/23 10:20 AYDEN Document 10/16/23 09:52 [email or web address] [email or web address] 10/16/23 10:20 AYDEN Document 10/16/23 10:00 AYDEN [email or web address] 10/16/23 10:20 AYDEN 10/16/23 10/16/23 10/16/23 09:45 09:50 09:51 Home O2 Evaluation [Oxygen] -Test Phase Resting Exercise Exercise -Oxygen Delivery Room Air Room Air Nasal Cannula -Oxygen Flow Rate (L/min) 1 [Pulse Oximetry] -Pulse Oximetry (90-100 %) 94 86 L 87 L [Pulse Rate] -Pulse Rate (60-100 beats/min) 70 93 [Exercise] -Ambulation Distance (feet) -Ambulation Distance (meters) [Comments] -Home Oxygen Evaluation Comments [Charges] -Evaluation Charges O2 Evaluation by Pulmonary 10/16/23 10/16/23 09:52 10:00 Home O2 Evaluation [Oxygen] -Test Phase Exercise Resting -Oxygen Delivery Nasal Cannula Room Air -Oxygen Flow Rate (L/min) 2 [Pulse Oximetry] -Pulse Oximetry (90-100 %) 91 95 [Pulse Rate] -Pulse Rate (60-100 beats/min) 91 73 [Exercise] -Ambulation Distance (feet) 600 -Ambulation Distance (meters) 182.87 [Comments] -Home Oxygen Evaluation Comments PT REQUIRES 2 L HOME O2 WITH ACTIVITY/ EXERTION [Charges] -Evaluation Charges
--- NOTE | 2023-10-16 11:48 | PCRCNOTE ---
HOME O2 EVAL DONE, PT NEEDS 2 L WITH ACTIVITY. SET UP WITH [facility], PT REQUESTING POC OR STATED SHE WILL NOT BE TAKING THE O2 OUT OF THE HOUSE. VERY ACTIVE, REQUESTED POC FROM [facility] ON ORDERS. TANK WILL BE GIVEN FOR TRANSPORT HOME FROM HOSPITAL.
--- NOTE | 2023-10-16 12:58 | P.DS_ITS ---
DS: Admitting Diagnosis Discharge Date 10/16/2023 Admitting Diagnosis Acute respiratory failure with hypoxia secondary to multifocal COPD/pneumonia/CHF DS: Discharge Diagnosis Discharge Diagnosis (1) Acute respiratory failure with hypoxia: Code(s): J96.01 - Acute respiratory failure with hypoxia Status: Acute (2) Acute exacerbation of chronic obstructive pulmonary disease: Code(s): J44.1 - Chronic obstructive pulmonary disease with (acute) exacerbation Status: Acute (3) Elevated troponin: Code(s): R79.89 - Other specified abnormal findings of blood chemistry Status: Acute (4) Dental abscess: Code(s): K04.7 - Periapical abscess without sinus Status: Acute (5) Congestive heart failure: Code(s): I50.9 - Heart failure, unspecified Status: Deleted (6) Cardiomyopathy with implantable cardioverter-defibrillator: Code(s): I42.9 - Cardiomyopathy, unspecified; Z95.810 - Presence of automatic (implantable) cardiac defibrillator Status: Deleted (7) Hypothyroidism: Code(s): E03.9 - Hypothyroidism, unspecified Status: Acute (8) Hyperlipidemia: Code(s): E78.5 - Hyperlipidemia, unspecified Status: Acute Plan Acute respiratory failure with hypoxia * SpO2 70% POA * Continues home supplemental oxygen and 2 L continue to wean as tolerated * CTA negative for PE/Mild emphysema with small cluster of <4 mm nodules in the right upper lobe likely infectious/inflammatory in etiology. * Secondary to pneumonia? and COPD exacerbation * 6 minute walk study prior to discharge Pneumonia? * Bronchodilators. * Chest x-ray: Mild emphysema with small cluster of <4 mm nodules in the right upper lobe likely infectious/inflammatory in etiology. * incentive spirometry while awake. * sputum culture ordered * influenza/COVID/RSV negative * respiratory panel pending * Azithromycin/Rocephin * supplemental oxygen therapy to maintain oxygen 92% * guaifenesin COPD * Bronchodilators. * Chest x-ray * incentive spirometry while awake. * steroids initiated * Azithromycin/Rocephin * supplemental oxygen therapy to maintain oxygen 92% * Will likely need 6 minute walk study prior to discharge Elevated troponins/HX CHF * Ischemic demand secondary to COPD exacerbation * Peaked at 0.152 with downtrend * Follow-up echocardiogram with improvement EF up to 45-50% * EKG Paced * Cardiology signed off on ACS * Resumed Entresto Code status: Full code per patient DVT prophylaxis: Lovenox Stress ulcer prophylaxis: Protonix 40 daily PT/OT Notes: PT/OT pending Disposition: Patient discharged to home DS: Summary Hospital Course Reason for hospitalization: Acute respiratory failure with hypoxia secondary to multifocal COPD/pneumonia/CHF Hospital Course: Interval history: Admission: Medical Chart This is a pleasant 78-year-old female with chronic obstructive pulmonary disease, congestive heart failure, hypothyroidism, and hyperlipidemia who presented to the emergency department for evaluation of nausea and shortness of breath. The patient provides the following history. She was prescribed Augmentin by her dentist on 10/11/2023 due to an abscessed tooth. She was seen in the ED the following day for GI symptoms which she attributed to the Augmentin and had an I&D of tooth number 27. She was given a prescription for clindamycin which she has at to have filled. She continues to have raven
--- NOTE | 2023-10-16 12:58 | PM.DS ---
DS: Admitting Diagnosis Discharge Date 10/16/2023 Admitting Diagnosis Acute respiratory failure with hypoxia secondary to multifocal COPD/pneumonia/CHF DS: Discharge Diagnosis Discharge Diagnosis (1) Acute respiratory failure with hypoxia: Code(s): J96.01 - Acute respiratory failure with hypoxia Status: Acute (2) Acute exacerbation of chronic obstructive pulmonary disease: Code(s): J44.1 - Chronic obstructive pulmonary disease with (acute) exacerbation Status: Acute (3) Elevated troponin: Code(s): R79.89 - Other specified abnormal findings of blood chemistry Status: Acute (4) Dental abscess: Code(s): K04.7 - Periapical abscess without sinus Status: Acute (5) Congestive heart failure: Code(s): I50.9 - Heart failure, unspecified Status: Deleted (6) Cardiomyopathy with implantable cardioverter-defibrillator: Code(s): I42.9 - Cardiomyopathy, unspecified; Z95.810 - Presence of automatic (implantable) cardiac defibrillator Status: Deleted (7) Hypothyroidism: Code(s): E03.9 - Hypothyroidism, unspecified Status: Acute (8) Hyperlipidemia: Code(s): E78.5 - Hyperlipidemia, unspecified Status: Acute Plan Acute respiratory failure with hypoxia SpO2 70% POA Continues home supplemental oxygen and 2 L continue to wean as tolerated CTA negative for PE/Mild emphysema with small cluster of <4 mm nodules in the right upper lobe likely infectious/inflammatory in etiology. Secondary to pneumonia? and COPD exacerbation 6 minute walk study prior to discharge Pneumonia? Bronchodilators. Chest x-ray: Mild emphysema with small cluster of <4 mm nodules in the right upper lobe likely infectious/inflammatory in etiology. incentive spirometry while awake. sputum culture ordered influenza/COVID/RSV negative respiratory panel pending Azithromycin/Rocephin supplemental oxygen therapy to maintain oxygen 92% guaifenesin COPD Bronchodilators. Chest x-ray incentive spirometry while awake. steroids initiated Azithromycin/Rocephin supplemental oxygen therapy to maintain oxygen 92% Will likely need 6 minute walk study prior to discharge Elevated troponins/HX CHF Ischemic demand secondary to COPD exacerbation Peaked at 0.152 with downtrend Follow-up echocardiogram with improvement EF up to 45-50% EKG Paced Cardiology signed off on ACS Resumed Entresto Code status: Full code per patient DVT prophylaxis: Lovenox Stress ulcer prophylaxis: Protonix 40 daily PT/OT Notes: PT/OT pending Disposition: Patient discharged to home DS: Summary Hospital Course Reason for hospitalization: Acute respiratory failure with hypoxia secondary to multifocal COPD/pneumonia/CHF Hospital Course: Interval history: Admission: Medical Chart This is a pleasant 78-year-old female with chronic obstructive pulmonary disease, congestive heart failure, hypothyroidism, and hyperlipidemia who presented to the emergency department for evaluation of nausea and shortness of breath. The patient provides the following history. She was prescribed Augmentin by her dentist on 10/11/2023 due to an abscessed tooth. She was seen in the ED the following day for GI symptoms which she attributed to the Augmentin and had an I&D of tooth number 27. She was given a prescription for clindamycin which she has at to have filled. She continues to have nausea and she also reports increasing cough and shortness of breath from baseline. The cough sounds wet but she has not been able to get anything up. She has been using her nebulizer and albuterol inhaler with lesser and lesser benefit. She denies fever, chills, sweats, chest pain, pleuritic pain, palpitations, orthopnea, paroxysmal nocturnal dyspnea, lower extremity edema, calf pain, nausea, vomiting, and diarrhea. No sick contacts. In the ED: She was hypoxic in triage with an SpO2 as low as
[2023-10-19 19:34] LABS: Pneumococcal Antigen Urine NOT DETECTED
[2023-10-20 03:54] LABS: Legionella pneumophila Ag Ur NOT DETECTED
[2023-10-20 18:13] LABS: Mycoplasma IgM Antibody Titer 118 U/mL
== END 2023-10-16 13:55 | disposition home or self-care (01) | DRG 189 ==
LOC: ANHED 16:59 → ANHIMU 17:29
PROVIDERS: Physician Assistant; Admitting Provider General Practice; Emergency Provider Emergency Medicine; PCP Internal Medicine; Visit Provider Nurse Practitioner Family
DX: J96.01 Acute respiratory failure with hypoxia (principal); J18.9 Pneumonia, unspecified organism; I24.89 Other forms of acute ischemic heart disease; I42.9 Cardiomyopathy, unspecified; I50.22 Chronic systolic (congestive) heart failure; E03.9 Hypothyroidism, unspecified; E78.5 Hyperlipidemia, unspecified; I11.0 Hypertensive heart disease with heart failure; J43.9 Emphysema, unspecified; K04.7 Periapical abscess without sinus; Z20.822 Contact with and (suspected) exposure to COVID-19; Z95.810 Presence of automatic (implantable) cardiac defibrillator
CPT/HCPCS: 36415; 71045; 71275; 80048; 80053; 81001; 83605; 83690; 83735; 83880; 84132; 84443; 84484; 85025; 85027; 86738; 87040; 87070; 87205; 87449; 87637; 87899; 93005; 93306; 94618; 94640; 96361; 96374; 97161; 97165; 99285; A9270; J0456; J0696; J1100; J1650; J7030; J7512; Q9967